=== PATIENT | female | born 1995 | race African-American/Black ===

== ENCOUNTER 2019-08-07 15:38 | Emergency (ER) | payer MEDICAID ==
[2019-08-07 16:20] LABS: Pregnancy Test - Urine (BHCG) POSITIVE (Negative)
[2019-08-07 16:21] LABS: Pregu Control Background? CLEAR/WHITE (CLR/WHITE); Pregu Control Bar Appear? YES (CONTROL BAR); Specific Gravity 1.026 (1.002-1.036)
[2019-08-07] MEDS ORDERED: Acetaminophen 500 MG TAB ONE (16:33)
== END 2019-08-07 16:42 | disposition home or self-care (01) ==
LOC: BURERS 15:38
DX: O9A.211 Injury, poisoning and certain other consequences of external causes complicating pregnancy, first trimester (principal); S39.011A Strain of muscle, fascia and tendon of abdomen, initial encounter; O16.1 Unspecified maternal hypertension, first trimester; Z3A.08 8 weeks gestation of pregnancy; W18.30XA Fall on same level, unspecified, initial encounter
CPT/HCPCS: 81025; 99284